=== PATIENT | male | born 1965 | race Caucasian/White ===

== ENCOUNTER 2023-05-02 06:03 | Emergency (ER) | payer BC, SELFPAY ==
[2023-05-02] VITALS (34 sets, daily range): BP systolic 114–164; BP diastolic 67–110; PULSE 67–88; RESP 14–25; TEMP 36.7; O2SAT 91–99; BMI 33.7
--- NOTE | 2023-05-02 06:14 | XR_ITS ---
The [address] [address] Patient Name: MADI MITCHELL MRN: [id number] date: 1965 Sex: M Assigned Patient Location: ED.MAIN Current Patient Location: ED.MAIN Accession/Order Number: [id number] Exam Date: 05/02/2023 06:27 Report Date: 05/02/2023 06:44 At the request of: KELSY MENENDEZ Procedure: XR chest 1V EXAMINATION: XR chest 1V HISTORY: cp ; chest pain COMPARISON: No relevant comparison available. FINDINGS: LUNGS: Single thin curvilinear opacity within left lung base. Lungs are otherwise clear. VASCULATURE: No increased pulmonary vasculature. PLEURA: No pneumothorax, effusion, or pleural thickening. CARDIAC: No cardiomegaly or cardiac silhouette abnormality. MEDIASTINUM: No visible mass or adenopathy. BONES: No fracture or visible bone lesion. OTHER: Negative. XR/XR chest 1V IMPRESSION: 1. Underexpanded lungs with trace amount of left basilar discoid atelectasis versus infiltrates. Atelectasis is favored. Electronically authenticated by: ALYSHA GURROLA Date: 05/02/2023 06:44
--- NOTE | 2023-05-02 06:14 | ECG_ITS ---
The [facility] [place] Test Date: 2023-05-02 Pat Name: Alberto Keating Department: Room: - Gender: Male Rn Patient Services: : 1965 Requested By: [facility] Order Number: [id number] Reading MD: CHRISTINA JOSEPH Measurements Intervals [place] Rate: 82 P: 56 NH: 174 QRS: 16 QRSD: 106 T: 48 QT: 356 QTc: 395 Interpretive Statements 1100 Sinus rhythm 2440 Incomplete right bundle branch block 8102 Low QRS voltage in chest leads 9130 borderline ECG No previous ECG available for comparison Electronically Signed On 05-02-2023 7:13:59 EDT by CHRISTINA JOSEPH
--- NOTE | 2023-05-02 06:14 | ED.CHESTPAI1 ---
HPI - Chest Pain General Chief Complaint: Chest Pain Stated Complaint: CHEST PAIN Time Seen by Provider: 05/02/23 06:14 History of Present Illness HPI narrative: pt presents emergency department complaining of chest pain. Patient states he was sitting down at work and developed back pain that radiated to his chest. It lasted approximately 10 minutes. It was sharp. Also the pain radiated to his left arm. Has a history of Hyperlipidemia and hypertension. he takes amlodipine and losartan. Last dose of the medications was yesterday. He states he took an aspirin when he had the chest pain did not get any relief with it. No previous history of heart disease. His last stress test was 10 years ago.Denies any dizziness, palpitations. He denies any nausea, vomiting, diarrhea, constipation, or abdominal pain. He denies any cough, fever, chills, or upper respiratory infection symptoms. He denies any shortness of breath. He states he had testing done last year in [place] to screen for aneurysms and was negative. Related Data Home Medications Medication Instructions Recorded Confirmed amlodipine 5 mg tablet 5 mg PO QDAY 05/02/23 05/02/23 atorvastatin 20 mg tablet 20 mg PO QDAY 05/02/23 05/02/23 semaglutide 1 mg/dose (4 mg/3 mL) 1 mg subcut QWEEK 05/02/23 05/02/23 subcutaneous pen injector (Ozempic) Allergies Allergy/AdvReac Type Severity Reaction Status Date / Time Penicillins Allergy Mild hives Verified 05/02/23 06:16 Review of Systems ROS Status of ROS 10 or more systems reviewed and unremarkable except as noted in history and below [facility] Social History Smoking status: Current every day smoker Exam Narrative Exam Narrative: Nurses notes and vital signs reviewed and patient is not hypoxic. General: Nontoxic, Well-appearing and in no apparent distress. Skin: Warm, dry, no pallor noted. No Rash Head: Normocephalic, atraumatic. Neck: Supple, non-tender. Eye: Pupils are equal, round and EOMI. No scleral icterus. Ears, Nose, Mouth, and Throat: TM clear, no posterior oropharynx erythema or nasal mucosal hypertrophy, uvula is mid-line Oral mucosa is moist Cardiovascular: Regular Rate and Rhythm without murmur, gallop or rub. Respiratory: No accessory muscle use or respiratory distress. Lungs are clear to auscultation, no wheezing, rales or rhonchi Chest Wall: no tenderness Back: No midline thoracic or lumbar vertebral tenderness. No CVA tenderness Musculoskeletal: normal ROM, no calf or popliteal tenderness, no lower extremity edema/swelling GI: Abdomen is soft, non-distended. Normal bowel sounds. No masses appreciated. No tenderness to palpation. No rebound, guarding, or rigidity noted. Neurological: A&O x4. No cranial nerve dysfunction observed. No truncal ataxia. Moves all extremities. Sensation intact. Psychiatric: Cooperative and interactive. Normal mood and affect. Constitutional Vital Signs, click to edit/add: Last Vital Signs Temp 98.1 F 05/02/23 06:08 Pulse 88 05/02/23 06:08 Resp 16 05/02/23 06:08 BP 164/110 H 05/02/23 06:08 Pulse Ox 97 05/02/23 06:08 O2 Del Method Room Air 05/02/23 06:08 Course Vital Signs Vital signs: Vital Signs Temperature 98.1 F 05/02/23 06:08 Pulse Rate 88 05/02/23 06:08 Respiratory Rate 16 05/02/23 06:08 Blood Pressure 164/110 H 05/02/23 06:08 Pulse Oximetry 97 05/02/23 06:08 Oxygen Delivery Method Room Air 05/02/23 06:08 Temperature 98.1 F 05/02/23 06:08 Pulse Rate 88 05/02/23 06:08 Respiratory Rate 16 05/02/23 06:08 Blood Pressure 164/110 H 05/02/23 06:08 Pulse Oximetry 97 05/02/23 06:08 Oxygen Delivery Method Room Air 05/02/23 06:08 MDM - Chest Pain MDM Narrative Medical decision making narrative: Nitroglycerin sublingual was ordered. Patient's EKG shows a sinus rhythm of 82 beats per minutes. There is an incomplete right bundle branch block. There are no acute ischemic changes. Patient denies any history of thrombotic embolic disease. He denies any lower extremity edema, cramping. Left studies were ordered. X-rays pending. Patient is signed out to Dr. Wolfe at the end of my shift awaiting testing, reevaluation, and disposition. Differential Diagnosis Differential diagnosis: Likely atypical chest pain, st elevation myocardial infarction and chest pain Lab Data Attestation: I reviewed the patient's lab results. Labs: Lab Results 05/02/23 Range/Units 06:21 WBC 10.4 (4.0-11.0) 10^3/uL RBC 5.44 (4.70-6.10) 10^6/uL Hgb 16.1 (14.0-18.0) g/dL Hct 47.9 (42.0-54.0) % MCV 88.1 (80.0-94.0) fL MCH 29.6 (25.9-34.0) pg MCHC 33.6 (29.9-35.2) g/dL RDW 13.2 (11.0-15.0) % Plt Count 218 (150-450) 10^3/uL MPV 10.6 (9.5-13.5) fL Neut % (Auto) 52.7 (43.0-75.0) % Lymph % (Auto) 30.7 (20.5-60.0) % [place] % (Auto) 9.7 (1.7-12.0) % Eos % (Auto) 4.2 (0.9-7.0) % Baso % (Auto) 1.3 (0.2-2.0) % Neut # (Auto) 5.5 (1.4-6.5) 10^3/uL Lymph # (Auto) 3.2 (1.2-3.8) 10^3/uL [place] # (Auto) 1.0 H (0.3-0.8) 10^3/uL Eos # (Auto) 0.4 (0.0-0.7) 10^3/uL Baso # (Auto) 0.1 (0.0-0.1) 10^3/uL Abs Immat Gran (auto) 0.15 H (0.00-0.03) 10^3/uL Imm/Tot Granulo (auto) 1.4 H (0.0-0.5) % ECG Data Attestation: I personally reviewed and interpreted this ECG as follows: Heart Score History: Slightly/Non-Suspicious ECG: Normal Age: >45-<65 years Risk Factors: 1 or 2 Risk Factors Discharge Plan Discharge Chief Complaint: Chest Pain Clinical Impression: Chest pain Patient Disposition: Still a Patient Prescriptions / Home Meds: No Action amlodipine 5 mg tablet 5 mg PO QDAY atorvastatin 20 mg tablet 20 mg PO QDAY Ozempic 1 mg/dose (4 mg/3 mL) pen injector 1 mg SUBCUT QWEEK Referrals: [facility] [Primary Care Provider] - 1 week
[2023-05-02 06:32] LABS: Basophils Absolute Auto 0.1 10^3/uL (0.0-0.1); Basophils Percent Auto 1.3 % (0.2-2.0); Eosinophils Absolute Auto 0.4 10^3/uL (0.0-0.7); Eosinophils Percent Auto 4.2 % (0.9-7.0); Hematocrit 47.9 % (42.0-54.0); Hemoglobin 16.1 g/dL (14.0-18.0); Immature Granulocytes Abs Auto 0.15 10^3/uL (0.00-0.03); Immature Granulocytes Pct Auto 1.4 % (0.0-0.5); Lymphocytes Absolute Auto 3.2 10^3/uL (1.2-3.8); Lymphocytes Percent Auto 30.7 % (20.5-60.0); Mean Corpuscular HGB Conc 33.6 g/dL (29.9-35.2); Mean Corpuscular Hemoglobin 29.6 pg (25.9-34.0); Mean Corpuscular Volume 88.1 fL (80.0-94.0); Mean Platelet Volume 10.6 fL (9.5-13.5); Monocytes Percent Auto 9.7 % (1.7-12.0); Neutrophils Absolute Auto 5.5 10^3/uL (1.4-6.5); Neutrophils Percent Auto 52.7 % (43.0-75.0); Platelet Count 218 10^3/uL (150-450); Red Blood Count 5.44 10^6/uL (4.70-6.10); Red Cell Distribution Width 13.2 % (11.0-15.0); White Blood Count 10.4 10^3/uL (4.0-11.0)
[2023-05-02 06:49] LABS: Anion Gap 13.4
[2023-05-02 06:51] LABS: Alanine Aminotransferase 33 U/L (16-63); Albumin Globulin Ratio 0.9; Albumin Level 3.7 g/dL (3.4-5.0); Alkaline Phosphatase 99 U/L (46-116); Aspartate Amino Transferase 21 U/L (15-37); BUN Creatinine Ratio 12.5; Bilirubin Total 0.2 mg/dL (0.2-1.0); Calcium 8.9 mg/dL (8.5-10.1); Chloride 102 mmol/L (98-107); Estimated GFR (African America >60 (>=60); Estimated GFR (Non-African Ame >60 (>=60); Globulin 3.9 g/dL; Glucose 124 mg/dL (74-106); Potassium 4.4 mmol/L (3.5-5.1); Sodium 138 mmol/L (136-145); Total Protein 7.6 g/dL (6.4-8.2); Troponin I High Sensitivity <4.0 pg/mL (4.0-76.1)
[2023-05-02 06:54] LABS: Partial Thromboplastin Time 30.6 sec (22.3-36.2)
[2023-05-02 09:46] LABS: Troponin I High Sensitivity <4.0 pg/mL (4.0-76.1)
== END 2023-05-02 10:12 | disposition home or self-care (01) ==
PROVIDERS: Emergency Medicine; Emergency Provider Emergency Medicine; PCP Family Medicine
DX: R07.9 Chest pain, unspecified (principal); I10 Essential (primary) hypertension; E78.5 Hyperlipidemia, unspecified; F17.210 Nicotine dependence, cigarettes, uncomplicated
CPT/HCPCS: 36415; 71045; 80053; 83690; 84484; 85025; 85730; 93005; 99285